=== PATIENT | female | born 1985 | race Two or more races ===

== ENCOUNTER 2022-01-01 11:30 | Outpatient (CLI) | payer OTHER | END 2022-01-01 12:00 | disposition home or self-care (01) | LOC: SONOGRAMA 11:30 | PROVIDERS: ATTEND Pathology Anatomic Pathology & Clinical Pathology | DX: E04.2 Nontoxic multinodular goiter (principal) ==

== ENCOUNTER 2022-02-01 07:36 | Outpatient (CLI) | payer OTHER | END 2022-02-01 07:48 | disposition home or self-care (01) | LOC: NUCLEAR 07:36 | PROVIDERS: ATTEND Surgery | DX: E04.2 Nontoxic multinodular goiter (principal) | CPT/HCPCS: 78014; A9512 ==